=== PATIENT | female | born 1950 | race Caucasian/White ===

== ENCOUNTER 2023-05-03 09:53 | Emergency (ER) | payer MEDICARE ==
[2023-05-03] MEDS ORDERED: Ketorolac 30 MG/ML SDV IM ONE (11:09)
== END 2023-05-03 14:01 | disposition home or self-care (01) ==
LOC: JP.ED 09:53
DX: S46.912A Strain of unspecified muscle, fascia and tendon at shoulder and upper arm level, left arm, initial encounter (principal); Z91.011 Allergy to milk products; X50.1XXA Overexertion from prolonged static or awkward postures, initial encounter
CPT/HCPCS: 73020; 73030; 96372; 99283; J1885

== ENCOUNTER 2024-04-20 07:45 | Day surgery (SDC) | payer MEDICARE ==
[2024-04-20] MEDS ORDERED: fentaNYL 100 MCG/2 ML SDV ONE (07:58)
[2024-04-20] MEDS ORDERED: Propofol 200 MG/20 ML SDV ONE (07:58)
[2024-04-20] MEDS: Lactated Ringers 1,000 ML IV SCH (08:36)
[2024-04-20] MEDS ORDERED: Atropine 0.4 MG/ML SDV ONE (10:07)
== END 2024-04-20 11:53 | disposition home or self-care (01) ==
LOC: JP.SDS 07:45
PROVIDERS: ATTEND Family Medicine
DX: Z12.11 Encounter for screening for malignant neoplasm of colon (principal); J44.9 Chronic obstructive pulmonary disease, unspecified; I25.10 Atherosclerotic heart disease of native coronary artery without angina pectoris
CPT/HCPCS: G0121; J0461; J2704; J3010; J7120; 00812-QZ

== ENCOUNTER 2024-07-01 08:29 | Day surgery (SDC) | payer MEDICARE ==
[~2024-07-01 08:29] MED LIST: Propofol 200 MG/20 ML SDV ONE; fentaNYL 50 MCG/ML SDV ONE
[2024-07-01] MEDS: Sodium Chloride 0.9% 1,000 ML IV SCH (09:30)
== END 2024-07-01 11:57 | disposition home or self-care (01) ==
LOC: JP.SDS 08:29
PROVIDERS: ATTEND Surgery
DX: R63.4 Abnormal weight loss (principal); K22.89 Other specified disease of esophagus; I25.10 Atherosclerotic heart disease of native coronary artery without angina pectoris; I10 Essential (primary) hypertension
CPT/HCPCS: 00731; 43239; 88305; J2704; J3010; J7030

== ENCOUNTER 2024-09-02 11:50 | Emergency (ER) | payer MEDICARE ==
[2024-09-02 12:47] LABS: BASOPHILS PERCENT AUTO 0.3 % (0.1-1.3); EOSINOPHILS ABSOLUTE AUTO 0.17 K/uL (0.00-0.40); EOSINOPHILS PERCENT AUTO 2.6 % (0.0-5.4); HEMATOCRIT 35.2 % (34.3-46.0); HEMOGLOBIN 11.2 g/dL (11.2-15.5); IMMATURE GRAN PERCENT AUTO 0.3 % (0.0-0.7); LYMPHOCYTES ABSOLUTE AUTO 0.51 K/uL (0.8-3.3); LYMPHOCYTES PERCENT AUTO 7.9 % (11.4-47.7); MEAN CORPUSCULAR HEMOGLOBIN 30.7 pg (31.6-35.5); MEAN CORPUSCULAR HGB CONC 31.8 g/dL (31.6-35.5); MEAN CORPUSCULAR VOLUME 96.4 fL (81.4-99.0); MONOCYTES ABSOLUTE AUTO 0.31 K/uL (0.20-0.90); MONOCYTES PERCENT AUTO 4.8 % (3.3-12.6); NEUTROPHILS ABSOLUTE AUTO 5.45 K/uL (1.0-7.6); NEUTROPHILS PERCENT AUTO 84.1 % (40.0-78.1); PLATELET COUNT,PLT 284 K/uL (130-375); RED BLOOD CELL COUNT 3.65 M/uL (3.77-5.24); WHITE BLOOD CELL COUNT,WBC 6.5 K/uL (3.2-11.0)
[2024-09-02 12:49] LABS: BASOPHILS ABSOLUTE AUTO 0.02 K/uL (0.00-0.10); IMMATURE GRAN ABSOLUTE AUTO 0.02 K/uL (0.00-0.23)
[2024-09-02 13:21] LABS: A/G RATIO 0.6 (1.2-2.2); ALANINE AMINOTRANSFERASE,ALT 15 U/L (12-78); ALBUMIN 2.8 g/dL (3.4-5.0); ALKALINE PHOSPHATASE 60 U/L (46-116); ANION GAP 10.1 mmol/L (5.0-14.0); ASPARTATE AMNIOTRANSFERASE,AST 20 U/L (15-37); BILIRUBIN TOTAL 0.3 mg/dL (0.2-1.0); BLOOD UREA NITROGEN,BUN 12 mg/dL (7-18); CALCIUM 8.7 mg/dL (8.5-10.1); CARBON DIOXIDE,CO2 25 mmol/L (21-32); CHLORIDE,CL 105 mmol/L (100-108); CREATININE 0.9 mg/dL (0.6-1.0); ESTIMATED GFR 68 mL/min (>60); GLUCOSE RANDOM 96 mg/dL (74-106); PROTEIN TOTAL,TP 7.3 g/dL (6.4-8.2); SODIUM,NA 140 mmol/L (140-148)
[2024-09-02 15:06] LABS: APPEARANCE,URINE TURBID (CLEAR); BILIRUBIN,URINE NEGATIVE (NEGATIVE); COLOR,URINE YELLOW (YELLOW); GLUCOSE,URINE NEGATIVE (NEGATIVE); KETONES,URINE NEGATIVE (NEGATIVE); LEUKOCYTE ESTERASE,URINE NEGATIVE (NEGATIVE); NITRITE,URINE NEGATIVE (NEGATIVE); OCCULT BLOOD,URINE LARGE (NEGATIVE); PH,URINE 5.5 (5.0-8.0); PROTEIN,URINE 100 mg/dL (NEGATIVE); UROBILINOGEN,URINE 0.2 EU/dL (0.2-1.0)
[2024-09-02 15:22] LABS: EPITHELIAL CELLS,URINE FEW; RBC,URINE >100 (0-5); WBC,URINE 40-50 (0-5)
[2024-09-02 15:23] LABS: AMORPHOUS SEDIMENT,URINE NOT SEEN; BACTERIA,URINE MODERATE; MUCUS,URINE NOT SEEN
== END 2024-09-02 16:45 | disposition home or self-care (01) ==
LOC: JP.ED 11:50
DX: R10.11 Right upper quadrant pain (principal); J44.9 Chronic obstructive pulmonary disease, unspecified; E78.00 Pure hypercholesterolemia, unspecified; Z86.73 Personal history of transient ischemic attack (TIA), and cerebral infarction without residual deficits; Z79.899 Other long term (current) drug therapy; Z91.011 Allergy to milk products; Z88.8 Allergy status to other drugs, medicaments and biological substances
CPT/HCPCS: 36415; 74176; 74176-26; 80053; 81001; 85025; 99284

== ENCOUNTER 2025-01-09 16:00 | Observation (INO) | payer MEDICARE ==
[2025-01-09] MEDS: Morphine 2 MG/ML SYRINGE IVPUSH ONE ×2 (18:15→22:07)
[2025-01-09 19:55] LABS: BASOPHILS ABSOLUTE AUTO 0.03 K/uL (0.00-0.10); BASOPHILS PERCENT AUTO 0.3 % (0.1-1.3); EOSINOPHILS ABSOLUTE AUTO 0.17 K/uL (0.00-0.40); EOSINOPHILS PERCENT AUTO 1.6 % (0.0-5.4); HEMATOCRIT 35.1 % (34.3-46.0); HEMOGLOBIN 11.2 g/dL (11.2-15.5); IMMATURE GRAN ABSOLUTE AUTO 0.06 K/uL (0.00-0.23); IMMATURE GRAN PERCENT AUTO 0.6 % (0.0-0.7); LYMPHOCYTES ABSOLUTE AUTO 0.87 K/uL (0.8-3.3); LYMPHOCYTES PERCENT AUTO 8.4 % (11.4-47.7); MEAN CORPUSCULAR HEMOGLOBIN 32.8 pg (31.6-35.5); MEAN CORPUSCULAR HGB CONC 31.9 g/dL (31.6-35.5); MEAN CORPUSCULAR VOLUME 102.9 fL (81.4-99.0); MONOCYTES ABSOLUTE AUTO 0.78 K/uL (0.20-0.90); MONOCYTES PERCENT AUTO 7.5 % (3.3-12.6); NEUTROPHILS ABSOLUTE AUTO 8.44 K/uL (1.0-7.6); NEUTROPHILS PERCENT AUTO 81.6 % (40.0-78.1); PLATELET COUNT,PLT 276 K/uL (130-375); RED BLOOD CELL COUNT 3.41 M/uL (3.77-5.24); WHITE BLOOD CELL COUNT,WBC 10.4 K/uL (3.2-11.0)
[2025-01-09 20:16] LABS: A/G RATIO 0.7 (1.2-2.2); ALANINE AMINOTRANSFERASE,ALT 17 U/L (12-78); ALBUMIN 2.9 g/dL (3.4-5.0); ALKALINE PHOSPHATASE 82 U/L (46-116); ANION GAP 8.6 mmol/L (5.0-14.0); ASPARTATE AMNIOTRANSFERASE,AST 23 U/L (15-37); BILIRUBIN TOTAL 0.2 mg/dL (0.2-1.0); BLOOD UREA NITROGEN,BUN 14 mg/dL (7-18); CALCIUM 9.1 mg/dL (8.5-10.1); CARBON DIOXIDE,CO2 29 mmol/L (21-32); CHLORIDE,CL 103 mmol/L (100-108); CREATININE 0.8 mg/dL (0.6-1.0); EST CRCL DRUG DOSING (CG) 31.39 mL/min; ESTIMATED GFR 78 mL/min (>60); GLUCOSE RANDOM 96 mg/dL (74-106); POTASSIUM,K 3.9 mmol/L (3.6-5.2); PROTEIN TOTAL,TP 7.1 g/dL (6.4-8.2); SODIUM,NA 141 mmol/L (140-148)
[2025-01-09] MEDS: Ketorolac 15 MG/ML SDV IVPUSH ONE (21:10)
[2025-01-09] MEDS ORDERED: Ondansetron 4 MG Tab.DIS PO PRN (23:14)
[2025-01-09] MEDS ORDERED: Sennosides/Docusate Sodium 50-8.6 MG Tab PO PRN (23:14)
[2025-01-09] MEDS ORDERED: Diclofenac Sodium 1% Gel 100 GM Tube TOP PRN (23:14)
[2025-01-09] MEDS ORDERED: Ondansetron 4 MG/2 ML SDV IV PRN (23:14)
[2025-01-09] MEDS ORDERED: Melatonin 3 MG Tab PO PRN (23:14)
[2025-01-09] MEDS: Acetaminophen 500 MG Tab PO SCH (23:33)
[2025-01-09] MEDS: Ketorolac 30 MG/ML SDV IVPUSH SCH (23:34)
[2025-01-10] MEDS ORDERED: Pantoprazole 40 MG Tab.CR PO SCH (07:30)
[2025-01-10] MEDS: Ketorolac 15 MG/ML SDV IVPUSH SCH (08:12)
[2025-01-10] MEDS: Tamsulosin 0.4 MG Cap.ER **PTOM PO SCH (08:17)
[2025-01-10] MEDS: predniSONE 5 MG **PTOM PO SCH (08:18)
[2025-01-10] MEDS: HYDROXYCHLOROQUINE 200 MG PO SCH (08:18)
[2025-01-10] MEDS: PIRFENIDONE 801 MG PO SCH (08:18)
[2025-01-10] MEDS: OMEPRAZOLE 20MG **PTOM PO SCH (08:19)
[2025-01-10] MEDS: PRAVASTATIN 10 MG PO SCH (08:19)
[2025-01-10] MEDS ORDERED: Pravastatin 20 MG Tab PO SCH (09:00)
== END 2025-01-10 12:45 | disposition home or self-care (01) ==
LOC: JP.ED 16:00 → JP.MS 21:46
PROVIDERS: ADMIT Registered Nurse; ATTEND Internal Medicine
DX: S40.011A Contusion of right shoulder, initial encounter (principal); M53.3 Sacrococcygeal disorders, not elsewhere classified; S00.93XA Contusion of unspecified part of head, initial encounter; S60.212A Contusion of left wrist, initial encounter; E78.00 Pure hypercholesterolemia, unspecified; F03.90 Unspecified dementia, unspecified severity, without behavioral disturbance, psychotic disturbance, mood disturbance, and anxiety; J84.112 Idiopathic pulmonary fibrosis; Z79.899 Other long term (current) drug therapy; W18.30XA Fall on same level, unspecified, initial encounter; Z91.011 Allergy to milk products
CPT/HCPCS: 36415; 70450; 72131; 72220; 72220-26; 73030-26-RT; 73030-RT; 73080-26-RT; 73080-RT; 73110-26-LT; 73110-LT; 76377; 80053; 85025; 96374; 96375; 96376; 99222; 99238; 99283; 99285-25; A9270-GY; G0378; J1885; J2270; J7512

== ENCOUNTER 2025-06-22 11:25 | Emergency (ER) | payer MEDICARE, OTHER ==
[2025-06-22 12:40] LABS: BASOPHILS PERCENT AUTO 0.3 % (0.1-1.3); EOSINOPHILS ABSOLUTE AUTO 0.06 K/uL (0.00-0.40); EOSINOPHILS PERCENT AUTO 0.8 % (0.0-5.4); IMMATURE GRAN PERCENT AUTO 0.3 % (0.0-0.7); LYMPHOCYTES ABSOLUTE AUTO 0.54 K/uL (0.8-3.3); LYMPHOCYTES PERCENT AUTO 6.8 % (11.4-47.7); MONOCYTES ABSOLUTE AUTO 0.30 K/uL (0.20-0.90); MONOCYTES PERCENT AUTO 3.8 % (3.3-12.6); NEUTROPHILS ABSOLUTE AUTO 7.00 K/uL (1.0-7.6); NEUTROPHILS PERCENT AUTO 88.0 % (40.0-78.1); PLATELET COUNT,PLT 274 K/uL (130-375); RED BLOOD CELL COUNT 3.82 M/uL (3.77-5.24); WHITE BLOOD CELL COUNT,WBC 7.9 K/uL (3.2-11.0)
[2025-06-22 12:41] LABS: BASOPHILS ABSOLUTE AUTO 0.02 K/uL (0.00-0.10); IMMATURE GRAN ABSOLUTE AUTO 0.02 K/uL (0.00-0.23)
[2025-06-22 13:02] LABS: A/G RATIO 0.8 (1.2-2.2); ALANINE AMINOTRANSFERASE,ALT 19 U/L (12-78); ASPARTATE AMNIOTRANSFERASE,AST 21 U/L (15-37); BILIRUBIN TOTAL 0.3 mg/dL (0.2-1.0); BLOOD UREA NITROGEN,BUN 10 mg/dL (7-18); CARBON DIOXIDE,CO2 27 mmol/L (21-32); CHLORIDE,CL 103 mmol/L (100-108); CREATININE 0.8 mg/dL (0.6-1.0); EST CRCL DRUG DOSING (CG) 33.19 mL/min; ESTIMATED GFR 78 mL/min (>60); GLUCOSE RANDOM 95 mg/dL (74-106); POTASSIUM,K 4.0 mmol/L (3.6-5.2); PROTEIN TOTAL,TP 7.4 g/dL (6.4-8.2); SODIUM,NA 139 mmol/L (140-148)
[2025-06-22 13:54] LABS: APPEARANCE,URINE CLEAR (CLEAR); GLUCOSE,URINE NEGATIVE (NEGATIVE); OCCULT BLOOD,URINE NEGATIVE (NEGATIVE)
[2025-06-22 13:58] LABS: SQUAMOUS EPITHELIAL CELLS,UR RARE /HPF; UROTHELIAL CELLS,URINE NOT SEEN /HPF
[2025-06-22] MEDS: Hydrocortisone Sodium Succinate 100 MG/2 ML SDV IVPUSH ONE (14:40)
== END 2025-06-22 14:55 | disposition home or self-care (01) ==
LOC: JP.ED 11:25
DX: I95.9 Hypotension, unspecified (principal); Z86.73 Personal history of transient ischemic attack (TIA), and cerebral infarction without residual deficits; Z90.09 Acquired absence of other part of head and neck; Z91.011 Allergy to milk products; Z88.8 Allergy status to other drugs, medicaments and biological substances
CPT/HCPCS: 36415; 71046; 80053; 81001; 83605; 84484; 85025; 93005; 96374; 99284; J1720